=== PATIENT | male | born 1970 | race Caucasian/White ===

== ENCOUNTER 2022-01-29 16:09 | Inpatient (IN) | payer OTHER ==
[2022-01-29 16:42] VITALS: BMI 27.8
[2022-01-29] MEDS ORDERED: LOPERAMIDE HCL 2 MG CAPSULE PO PRN (17:49)
[2022-01-29] MEDS ORDERED: DICYCLOMINE HCL 10 MG CAPSULE PO PRN (17:49)
[2022-01-29] MEDS ORDERED: BENZOCAINE/MENTHOL (CHLORASEPTIC ) LOZENGE MM PRN (17:49)
[2022-01-29] MEDS ORDERED: MAGNESIUM HYDROX 2400MG/30ML ORAL SUSPENSION 30 ML CUP PO PRN (17:49)
[2022-01-29] MEDS ORDERED: IBUPROFEN 400 MG TABLET (FP) PO PRN (17:49)
[2022-01-29] MEDS ORDERED: MAGNESIUM CITRATE 300 ML BOTTLE PO PRN (17:49)
[2022-01-29] MEDS ORDERED: NICOTINE POLACRILEX 2 MG GUM BUC PRN (17:49)
[2022-01-29] MEDS ORDERED: P-EPHED 60MG/TRIPROLIDI 2.5MG TABLET PO PRN (17:49)
[2022-01-29] MEDS ORDERED: guaiFENesin 200 MG/10 ML 10 ML UNIT-DOSE CUPS PO PRN (17:49)
[2022-01-29] MEDS ORDERED: NICOTINE 10 MG CARTRIDGE (INHALER) IH PRN (17:49)
[2022-01-29] MEDS ORDERED: BISMUTH SUBSALICYLATE 524 MG/30 ML PO PRN (17:49)
[2022-01-29] MEDS ORDERED: MAG HYDROX/AL HYDROX/SIMETH 30 ML UNIT-DOSE CUP PO PRN (17:49)
[2022-01-29] MEDS ORDERED: ONDANSETRON *ODT* 4 MG TABLET SL PRN (17:49)
[2022-01-29] MEDS ORDERED: ACETAMINOPHEN 325 MG TABLET (FP) PO PRN ×2 (17:49)
[2022-01-29] MEDS ORDERED: chlordiazePOXIDE HCL 25 MG CAPSULE PO PRN (17:54)
[2022-01-29] MEDS ORDERED: methaDONE HCL 10 MG TABLET (FOR DETOX USE ONLY) PO ONE (18:54)
[2022-01-29] MEDS: METHOCARBAMOL 500 MG TABLET PO PRN (20:10)
[2022-01-29] MEDS: hydrOXYzine PAMOATE 25 MG CAPSULE (FP) PO PRN ×2 (20:11→22:09)
[2022-01-29] MEDS: MELATONIN 5 MG TABLETS PO PRN ×2 (20:12→22:09)
[2022-01-29] MEDS: chlordiazePOXIDE HCL 25 MG CAPSULE PO SCH (22:09)
[2022-01-29] MEDS: THIAMINE HCL 100 MG TABLET (FP) PO SCH (22:09)
[2022-01-30] MEDS: chlordiazePOXIDE HCL 25 MG CAPSULE PO SCH ×2 (05:20→10:09)
[2022-01-30] MEDS ORDERED: methaDONE HCL 10 MG TABLET (FOR DETOX USE ONLY) ONE (09:39)
[2022-01-30] MEDS: PRENATAL VITAMINS W/ FOLIC ACID TABLET (FP) PO SCH (10:08)
[2022-01-30] MEDS: METHOCARBAMOL 500 MG TABLET PO PRN (10:11)
[2022-01-30] MEDS: hydrOXYzine PAMOATE 25 MG CAPSULE (FP) PO PRN ×2 (10:11→17:34)
[2022-01-30] MEDS ORDERED: DIVALPROEX NA *ER* EXTEND REL 250 MG TABLET.SA PO SCH (11:15)
[2022-01-30] MEDS: SERTRALINE HCL 50 MG TABLET (FP) PO SCH (11:25)
[2022-01-30] MEDS: ALBUTEROL SO4 HFA INHALER IH PRN ×2 (11:25→18:08)
[2022-01-30] MEDS ORDERED: diazePAM 5 MG TABLET PO PRN (11:33)
[2022-01-30] MEDS: diazePAM 5 MG TABLET PO SCH ×3 (12:07→22:25)
[2022-01-30] MEDS: busPIRone HCL 5 MG TABLET PO SCH ×2 (13:28→22:24)
[2022-01-30] MEDS: HALOPERIDOL DECANOATE 100 MG/ML IM ONE ×2 (13:32→14:58)
[2022-01-30] MEDS: DIVALPROEX SODIUM 500 MG TABLET E.C. PO SCH ×2 (14:32→22:24)
[2022-01-30] MEDS ORDERED: SUVOREXANT 10 MG TABLET PO PRN (22:00)
[2022-01-30] MEDS: QUEtiapine FUMARATE 100 MG TABLET (FP) PO SCH (22:24)
[2022-01-30] MEDS: DIVALPROEX SODIUM 250 MG TABLET E.C. PO SCH (22:24)
[2022-01-30] MEDS: THIAMINE HCL 100 MG TABLET (FP) PO SCH (22:24)
[2022-01-30] MEDS: OLANZapine 10 MG TABLET PO SCH (22:24)
[2022-01-31] MEDS ORDERED: chlordiazePOXIDE HCL 25 MG CAPSULE PO SCH (05:00)
[2022-01-31] MEDS: diazePAM 5 MG TABLET PO SCH ×5 (06:04→18:37)
[2022-01-31] MEDS: busPIRone HCL 5 MG TABLET PO SCH ×3 (06:04→22:12)
[2022-01-31] MEDS ORDERED: methaDONE HCL 10 MG TABLET (FOR DETOX USE ONLY) PO ONE (10:00)
[2022-01-31] MEDS: SERTRALINE HCL 50 MG TABLET (FP) PO SCH (10:27)
[2022-01-31] MEDS: DIVALPROEX SODIUM 250 MG TABLET E.C. PO SCH (10:27)
[2022-01-31] MEDS: DIVALPROEX SODIUM 500 MG TABLET E.C. PO SCH (10:27)
[2022-01-31] MEDS: PRENATAL VITAMINS W/ FOLIC ACID TABLET (FP) PO SCH (10:27)
[2022-01-31 12:33] LABS: HEMATOCRIT 36.5 % (35.4-49); HEMOGLOBIN 12.5 GM/dL (11.7-16.9); MCH 32.1 pg (25.7-33.7); MCHC 34.3 g/dl (32.0-35.9); MEAN CELL VOLUME 93.6 fl (80-96); MEAN PLT VOLUME 7.7 fl (7.5-11.1); PLATELET COUNT 193 10^3/uL (134-434); RBC 3.89 M/mm3 (4.00-5.60); RDW 14.4 % (11.9-15.9)
[2022-01-31 13:20] LABS: CALCIUM 9.2 mg/dL (8.5-10.1)
[2022-01-31 13:21] LABS: CREATININE 0.8 mg/dL (0.55-1.3)
[2022-01-31 13:22] LABS: BILIRUBIN,TOTAL 0.4 mg/dL (0.2-1); TOT PROT 7.3 g/dl (6.4-8.2)
[2022-01-31 13:23] LABS: ALBUMIN 3.8 g/dl (3.4-5.0); BLOOD UREA NITROGEN 14.2 mg/dL (7-18)
[2022-01-31 17:52] VITALS: BP 133/72; PULSE 109; TEMP 98.9
[2022-01-31] MEDS: hydrOXYzine PAMOATE 25 MG CAPSULE (FP) PO PRN (18:23)
[2022-01-31] MEDS ORDERED: NALOXONE HCL 0.4 MG/ML VIAL ONE (18:39)
[2022-02-01] MEDS ORDERED: chlordiazePOXIDE HCL 10 MG CAPSULE PO PRN
[2022-02-01] MEDS: DIVALPROEX SODIUM 500 MG TABLET E.C. PO SCH (00:14)
[2022-02-01] MEDS: DIVALPROEX SODIUM 250 MG TABLET E.C. PO SCH (00:14)
[2022-02-01] MEDS: QUEtiapine FUMARATE 100 MG TABLET (FP) PO SCH (00:14)
[2022-02-01] MEDS: THIAMINE HCL 100 MG TABLET (FP) PO SCH (01:23)
[2022-02-01] MEDS: OLANZapine 10 MG TABLET PO SCH (01:23)
[2022-02-01] MEDS: diazePAM 5 MG TABLET PO SCH (01:23)
[2022-02-01] MEDS ORDERED: chlordiazePOXIDE HCL 10 MG CAPSULE PO SCH (05:00)
[2022-02-01] MEDS ORDERED: diazePAM 5 MG TABLET PO SCH (06:00)
[2022-02-01 12:35] LABS: HIV INTERPRETATION NEGATIVE (NEGATIVE)
[2022-02-02 00:06] LABS: SARS-CoV-2 NAA Not Detected (Not Detected)
[2022-02-02] MEDS ORDERED: chlordiazePOXIDE HCL 10 MG CAPSULE PO SCH (05:00)
[2022-02-02] MEDS ORDERED: diazePAM 5 MG TABLET PO SCH (06:00)
[2022-02-02] MEDS ORDERED: methaDONE HCL 10 MG TABLET (FOR DETOX USE ONLY) PO ONE (10:00)
[2022-02-03] MEDS ORDERED: chlordiazePOXIDE HCL 10 MG CAPSULE PO ONE (05:00)
== END 2022-02-01 03:46 | disposition short-term general hospital (02) | DRG 897 ==
LOC: EDSEX → YASAS 16:09 → Y6N 19:04
PROVIDERS: ADMIT Allergy & Immunology; ATTEND Allergy & Immunology
PROC: HZ2ZZZZ Detoxification Services for Substance Abuse Treatment (ICD-10-PCS; principal; 2022-01-30)
DX: F11.23 Opioid dependence with withdrawal (principal); F14.20 Cocaine dependence, uncomplicated; F19.282 Other psychoactive substance dependence with psychoactive substance-induced sleep disorder; F19.24 Other psychoactive substance dependence with psychoactive substance-induced mood disorder; F10.230 Alcohol dependence with withdrawal, uncomplicated; F12.10 Cannabis abuse, uncomplicated; F17.210 Nicotine dependence, cigarettes, uncomplicated; I10 Essential (primary) hypertension; J44.9 Chronic obstructive pulmonary disease, unspecified; E11.9 Type 2 diabetes mellitus without complications; Z62.810 Personal history of physical and sexual abuse in childhood; Z59.00 Homelessness unspecified
CPT/HCPCS: 36415; 80053; 80164; 85027; 86780; 87389; 87811; 93005; 93010; C9803-CS; U0003; U0005

== ENCOUNTER 2022-01-31 19:30 | Inpatient (IN) | payer OTHER ==
[2022-01-31 19:42] VITALS: BMI 27.8
[2022-01-31] MEDS ORDERED: NALOXONE HCL 0.4 MG/ML VIAL IVPUSH ONE (19:47)
[2022-01-31] MEDS ORDERED: MAG HYDROX/AL HYDROX/SIMETH 30 ML UNIT-DOSE CUP PO ONE (19:51)
[2022-01-31] MEDS ORDERED: FAMOTIDINE 20 MG/50 ML IVPB 20 MG/50 ML MG IVPB ONE (19:51)
[2022-01-31] MEDS ORDERED: ONDANSETRON 4 MG/2 ML VIAL IVPUSH ONE (19:51)
[2022-01-31] MEDS ORDERED: LACTATED RINGERS SOLUTION 1000 ML INFUS.BAG IV ONE (19:51)
[2022-01-31 21:28] LABS: VENOUS BASE EXCESS 5.7 mmol/L (-2-2); VENOUS O2 SATURATION 98.6 % (70-80); VENOUS PCO2 63.4 mmHg (38-52); VENOUS PH 7.34 (7.310-7.410)
[2022-01-31] MEDS ORDERED: ONDANSETRON 4 MG/2 ML VIAL ONE (21:28)
[2022-01-31] MEDS ORDERED: MAG HYDROX/AL HYDROX/SIMETH 30 ML UNIT-DOSE CUP ONE (21:28)
[2022-01-31] MEDS ORDERED: FAMOTIDINE 10 MG/ML VIAL IVPB ONE (21:29)
[2022-01-31 21:33] LABS: BASO % 0.3 % (0-2.0); EOS % 0.1 % (0-4.5); HEMATOCRIT 35.8 % (35.4-49); HEMOGLOBIN 12.3 GM/dL (11.7-16.9); MCHC 34.2 g/dl (32.0-35.9); MEAN CELL VOLUME 93.5 fl (80-96); MEAN PLT VOLUME 7.6 fl (7.5-11.1); NEUT % 77.6 % (42.8-82.8); PLATELET COUNT 183 10^3/uL (134-434); RBC 3.83 M/mm3 (4.00-5.60); RDW 14.3 % (11.9-15.9); WHITE BLOOD COUNT 9.5 K/mm3 (4.0-10.0)
[2022-01-31 21:40] LABS: INR 0.97 (0.83-1.09); PROTHROMBIN TIME (PATIENT) 11.1 SEC (9.7-13.0)
[2022-01-31 21:42] LABS: ACTIVATED PTT 31.3 SECONDS (25.2-36.5)
[2022-01-31 21:47] LABS: ALBUMIN 3.4 g/dl (3.4-5.0); BLOOD UREA NITROGEN 11.6 mg/dL (7-18)
[2022-01-31 21:50] LABS: CREATININE 0.8 mg/dL (0.55-1.3)
[2022-01-31 21:52] LABS: BILIRUBIN,TOTAL 0.4 mg/dL (0.2-1); TOT PROT 7.5 g/dl (6.4-8.2)
[2022-01-31] MEDS ORDERED: CEFTRIAXONE 1 GM in DEXTROSE 5%-WATER - 100 ML IVPB ONE (22:42)
[2022-01-31] MEDS ORDERED: AZITHROMYCIN IVPB 500 MG in DEXTROSE 5%-WATER - 250 ML IVPB ONE (22:44)
[2022-02-01] MEDS ORDERED: CEFTRIAXONE 1 GM/50 ML BAG ONE (00:59)
[2022-02-01 01:17] LABS: URINE BARBITURATES NEGATIVE (NEGATIVE)
[2022-02-01 01:18] LABS: PHENCYCLIDINE,URINE NEGATIVE (NEGATIVE)
[2022-02-01] MEDS ORDERED: AZITHROMYCIN IVPB 500 MG/250 ML BAG IVPB ONE (01:29)
[2022-02-01 01:42] LABS: COCAINE, UR POSITIVE (NEGATIVE); METHADONE, UR POSITIVE (NEGATIVE); OPIATES, URI NEGATIVE (NEGATIVE); URINE AMPHETAMINES NEGATIVE (NEGATIVE); URINE BENZODIAZEPINES POSITIVE (NEGATIVE)
[2022-02-01] MEDS ORDERED: SODIUM CHLORIDE 500 ML IV STA (03:06)
[2022-02-01] MEDS ORDERED: cloNIDine HCL 0.1 MG TABLET PO PRN (03:15)
[2022-02-01] MEDS ORDERED: diazePAM 5 MG TABLET PO PRN (03:15)
[2022-02-01] MEDS ORDERED: diazePAM 5 MG TABLET PO SCH (06:00)
[2022-02-01] MEDS ORDERED: busPIRone HCL 5 MG TABLET ONE (06:00)
[2022-02-01] MEDS: busPIRone HCL 5 MG TABLET PO SCH ×3 (06:57→22:49)
[2022-02-01] MEDS ORDERED: ALBUTEROL SO4 HFA INHALER IH ONE (08:27)
[2022-02-01] MEDS: ALBUTEROL SO4 HFA INHALER IH PRN (08:52)
[2022-02-01] MEDS ORDERED: AMPICILLIN NA/SULBACTAM NA 1.5 GM in SODIUM CHLORIDE 100 ML IVPB SCH (09:00)
[2022-02-01] MEDS ORDERED: methaDONE HCL 10 MG TABLET ONE (09:16)
[2022-02-01] MEDS ORDERED: SERTRALINE HCL 50 MG TABLET (FP) ONE (09:16)
[2022-02-01] MEDS ORDERED: ENOXAPARIN NA (PORCINE) 40 MG/0.4 ML DISP.SYRIN SQ ONE (09:17)
[2022-02-01] MEDS: ENOXAPARIN NA (PORCINE) 40 MG/0.4 ML DISP.SYRIN SQ SCH (09:37)
[2022-02-01] MEDS: SERTRALINE HCL 50 MG TABLET (FP) PO SCH (09:37)
[2022-02-01] MEDS: NICOTINE 14 MG/24 HOURS TOPICAL PATCH TD SCH (09:37)
[2022-02-01] MEDS ORDERED: DIVALPROEX NA *ER* EXTEND REL 250 MG TABLET.SA PO SCH (10:00)
[2022-02-01] MEDS ORDERED: PIPERACILLIN/TAZOB 3.375 GM 3.375 GM in DEXTROSE 5%-WATER - 50 ML IVPB SCH ×2 (11:30→18:00)
[2022-02-01] MEDS ORDERED: PIPERACILLIN/TAZOB 3.375 GM 3.375 GM/50 ML BAG IVPB ONE (11:32)
[2022-02-01] MEDS ORDERED: DEXTROSE 5%-WATER - 50 ML IVPB ONE (17:26)
[2022-02-01] MEDS ORDERED: PIPERACILLIN/TAZOBACTAM 3.375 GM VIAL IVPB ONE (17:26)
[2022-02-01] MEDS: PIPERACILLIN/TAZOB 3.375 GM 3.375 GM in DEXTROSE 5%-WATER - 50 ML IVPB SCH (17:33)
[2022-02-01] MEDS ORDERED: QUEtiapine FUMARATE 50 MG TABLET ONE (21:23)
[2022-02-01] MEDS: diazePAM 5 MG TABLET PO SCH (22:49)
[2022-02-01] MEDS: OLANZapine 10 MG TABLET PO SCH (22:51)
[2022-02-01] MEDS: DIVALPROEX NA *ER* EXTEND REL 250 MG TABLET.SA PO SCH (22:51)
[2022-02-01] MEDS: QUEtiapine FUMARATE 100 MG TABLET (FP) PO SCH (22:51)
[2022-02-02] MEDS ORDERED: PIPERACILLIN/TAZOBACTAM 3.375 GM VIAL IVPB ONE ×3 (01:51→16:49)
[2022-02-02] MEDS ORDERED: DEXTROSE 5%-WATER - 50 ML IVPB ONE ×3 (01:52→16:49)
[2022-02-02] MEDS: PIPERACILLIN/TAZOB 3.375 GM 3.375 GM in DEXTROSE 5%-WATER - 50 ML IVPB SCH ×3 (03:00→17:49)
[2022-02-02] MEDS ORDERED: diazePAM 5 MG TABLET PO ONE (06:00)
[2022-02-02] MEDS ORDERED: diazePAM 5 MG TABLET PO SCH (06:00)
[2022-02-02] MEDS: busPIRone HCL 5 MG TABLET PO SCH ×3 (06:10→21:36)
[2022-02-02 07:15] LABS: BASO % 0.2 % (0-2.0); HEMATOCRIT 31.7 % (35.4-49); LYMPH % 30.6 % (8-40); MCH 32.2 pg (25.7-33.7); MCHC 34.6 g/dl (32.0-35.9); MEAN CELL VOLUME 92.9 fl (80-96); MEAN PLT VOLUME 7.6 fl (7.5-11.1); MONO % 10.6 % (3.8-10.2); NEUT % 57.6 % (42.8-82.8); PLATELET COUNT 192 10^3/uL (134-434); RBC 3.41 M/mm3 (4.00-5.60); WHITE BLOOD COUNT 4.9 K/mm3 (4.0-10.0)
[2022-02-02 07:40] LABS: CALCIUM 8.5 mg/dL (8.5-10.1)
[2022-02-02 07:41] LABS: ALBUMIN 3.1 g/dl (3.4-5.0); MAGNESIUM 2.5 mg/dL (1.8-2.4)
[2022-02-02 07:44] LABS: CREATININE 0.7 mg/dL (0.55-1.3); PHOSPHOROUS 3.9 mg/dL (2.5-4.9)
[2022-02-02 07:45] LABS: BILIRUBIN,TOTAL 0.3 mg/dL (0.2-1)
[2022-02-02 07:46] LABS: TOT PROT 6.1 g/dl (6.4-8.2)
[2022-02-02] MEDS: DIVALPROEX NA *ER* EXTEND REL 250 MG TABLET.SA PO SCH ×2 (09:37→21:37)
[2022-02-02] MEDS: diazePAM 5 MG TABLET PO SCH (09:38)
[2022-02-02] MEDS: ENOXAPARIN NA (PORCINE) 40 MG/0.4 ML DISP.SYRIN SQ SCH (09:38)
[2022-02-02] MEDS: SERTRALINE HCL 50 MG TABLET (FP) PO SCH (09:38)
[2022-02-02] MEDS: NICOTINE 14 MG/24 HOURS TOPICAL PATCH TD SCH (09:38)
[2022-02-02] MEDS: ALBUTEROL SO4 HFA INHALER IH PRN ×2 (09:44→16:55)
[2022-02-02] MEDS ORDERED: methaDONE HCL 10 MG TABLET (FOR DETOX USE ONLY) PO ONE (10:00)
[2022-02-02] MEDS ORDERED: methaDONE HCL 10 MG TABLET PO ONE (10:00)
[2022-02-02 20:16] LABS: PH,URINE 7.5 (5.0-8.0); URINE APPEARANCE CLEAR; URINE BILIRUBIN NEGATIVE (NEGATIVE); URINE COLOR YELLOW; URINE GLUCOSE (UA) NEGATIVE (NEGATIVE); URINE KETONE NEGATIVE (NEGATIVE); URINE LEUK ESTERASE NEGATIVE (NEGATIVE); URINE NITRITE NEGATIVE (NEGATIVE); URINE PROTEIN NEGATIVE (NEGATIVE); URINE UROBILINOGEN 0.2 mg/dL (0.2-1.0)
[2022-02-02] MEDS ORDERED: QUEtiapine FUMARATE 50 MG TABLET ONE (21:23)
[2022-02-02] MEDS: OLANZapine 10 MG TABLET PO SCH (21:37)
[2022-02-02] MEDS: QUEtiapine FUMARATE 100 MG TABLET (FP) PO SCH (21:38)
[2022-02-03] MEDS ORDERED: PIPERACILLIN/TAZOBACTAM 3.375 GM VIAL IVPB ONE ×3 (01:07→15:46)
[2022-02-03] MEDS ORDERED: DEXTROSE 5%-WATER - 50 ML IVPB ONE ×3 (01:08→15:46)
[2022-02-03] MEDS: PIPERACILLIN/TAZOB 3.375 GM 3.375 GM in DEXTROSE 5%-WATER - 50 ML IVPB SCH ×3 (01:17→16:59)
[2022-02-03] MEDS ORDERED: diazePAM 5 MG TABLET PO ONE (06:00)
[2022-02-03] MEDS: busPIRone HCL 5 MG TABLET PO SCH ×3 (06:33→23:09)
[2022-02-03] MEDS: ENOXAPARIN NA (PORCINE) 40 MG/0.4 ML DISP.SYRIN SQ SCH (09:04)
[2022-02-03] MEDS: DIVALPROEX NA *ER* EXTEND REL 250 MG TABLET.SA PO SCH ×2 (09:04→23:09)
[2022-02-03] MEDS: NICOTINE 14 MG/24 HOURS TOPICAL PATCH TD SCH (09:05)
[2022-02-03] MEDS: SERTRALINE HCL 50 MG TABLET (FP) PO SCH (09:05)
[2022-02-03 09:37] LABS: BASO % 0.3 % (0-2.0); EOS % 1.2 % (0-4.5); HEMATOCRIT 34.4 % (35.4-49); HEMOGLOBIN 11.7 GM/dL (11.7-16.9); LYMPH % 32.7 % (8-40); MCH 31.6 pg (25.7-33.7); MEAN CELL VOLUME 92.9 fl (80-96); MEAN PLT VOLUME 7.6 fl (7.5-11.1); MONO % 8.6 % (3.8-10.2); NEUT % 57.2 % (42.8-82.8); PLATELET COUNT 251 10^3/uL (134-434); RDW 13.9 % (11.9-15.9); WHITE BLOOD COUNT 5.6 K/mm3 (4.0-10.0)
[2022-02-03 10:03] LABS: ALBUMIN 3.3 g/dl (3.4-5.0); BLOOD UREA NITROGEN 11.9 mg/dL (7-18); MAGNESIUM 2.3 mg/dL (1.8-2.4)
[2022-02-03 10:06] LABS: CREATININE 0.7 mg/dL (0.55-1.3); PHOSPHOROUS 4.2 mg/dL (2.5-4.9)
[2022-02-03 10:08] LABS: BILIRUBIN,TOTAL 0.3 mg/dL (0.2-1)
[2022-02-03 10:10] LABS: TOT PROT 6.7 g/dl (6.4-8.2)
[2022-02-03] MEDS: ALBUTEROL SO4 HFA INHALER IH PRN ×2 (11:04→18:45)
[2022-02-03 15:57] LABS: URINE APPEARANCE CLEAR; URINE BILIRUBIN NEGATIVE (NEGATIVE); URINE COLOR YELLOW; URINE GLUCOSE (UA) NEGATIVE (NEGATIVE); URINE KETONE NEGATIVE (NEGATIVE); URINE LEUK ESTERASE NEGATIVE (NEGATIVE); URINE NITRITE NEGATIVE (NEGATIVE); URINE PROTEIN NEGATIVE (NEGATIVE); URINE UROBILINOGEN 0.2 mg/dL (0.2-1.0)
[2022-02-03 16:50] LABS: URINE APPEARANCE CLEAR; URINE BILIRUBIN NEGATIVE (NEGATIVE); URINE COLOR YELLOW; URINE GLUCOSE (UA) NEGATIVE (NEGATIVE); URINE KETONE NEGATIVE (NEGATIVE); URINE LEUK ESTERASE NEGATIVE (NEGATIVE); URINE NITRITE NEGATIVE (NEGATIVE); URINE PROTEIN NEGATIVE (NEGATIVE); URINE UROBILINOGEN 0.2 mg/dL (0.2-1.0)
[2022-02-03] MEDS ORDERED: QUEtiapine FUMARATE 50 MG TABLET ONE (22:25)
[2022-02-03] MEDS: AMOX TR/POT CLAV 875MG/125MG TABLETS (FP) PO SCH (23:06)
[2022-02-03] MEDS: OLANZapine 10 MG TABLET PO SCH (23:06)
[2022-02-03] MEDS: QUEtiapine FUMARATE 100 MG TABLET (FP) PO SCH (23:09)
[2022-02-04] MEDS: busPIRone HCL 5 MG TABLET PO SCH ×3 (06:04→21:07)
[2022-02-04 08:23] LABS: BASO % 0.4 % (0-2.0); EOS % 1.8 % (0-4.5); HEMATOCRIT 36.9 % (35.4-49); HEMOGLOBIN 12.7 GM/dL (11.7-16.9); MCH 31.9 pg (25.7-33.7); MCHC 34.3 g/dl (32.0-35.9); MEAN CELL VOLUME 92.8 fl (80-96); MONO % 9.2 % (3.8-10.2); NEUT % 56.6 % (42.8-82.8); PLATELET COUNT 253 10^3/uL (134-434); RBC 3.98 M/mm3 (4.00-5.60); RDW 14.1 % (11.9-15.9); WHITE BLOOD COUNT 5.2 K/mm3 (4.0-10.0)
[2022-02-04 08:44] LABS: CALCIUM 9.1 mg/dL (8.5-10.1)
[2022-02-04 08:45] LABS: ALBUMIN 3.2 g/dl (3.4-5.0); BLOOD UREA NITROGEN 14.4 mg/dL (7-18); MAGNESIUM 2.5 mg/dL (1.8-2.4)
[2022-02-04 08:48] LABS: CREATININE 0.8 mg/dL (0.55-1.3); PHOSPHOROUS 4.4 mg/dL (2.5-4.9)
[2022-02-04] MEDS: ALBUTEROL SO4 HFA INHALER IH PRN (08:48)
[2022-02-04 08:49] LABS: BILIRUBIN,TOTAL 0.3 mg/dL (0.2-1); TOT PROT 6.7 g/dl (6.4-8.2)
[2022-02-04] MEDS: POLYETHYLENE GLYCOL (HEALTHYLAX) 3350 17 GM PACKET PO SCH (10:23)
[2022-02-04] MEDS: DIVALPROEX NA *ER* EXTEND REL 250 MG TABLET.SA PO SCH ×2 (10:24→21:08)
[2022-02-04] MEDS: AMOX TR/POT CLAV 875MG/125MG TABLETS (FP) PO SCH ×2 (10:24→16:41)
[2022-02-04] MEDS: SERTRALINE HCL 50 MG TABLET (FP) PO SCH (10:25)
[2022-02-04] MEDS: ENOXAPARIN NA (PORCINE) 40 MG/0.4 ML DISP.SYRIN SQ SCH (10:25)
[2022-02-04] MEDS: NICOTINE 14 MG/24 HOURS TOPICAL PATCH TD SCH (10:27)
[2022-02-04] MEDS ORDERED: TAMSULOSIN HCL 0.4 MG CAP PO ONE (15:39)
[2022-02-04] MEDS ORDERED: ACETAMINOPHEN 325 MG TABLET (FP) PO PRN (20:15)
[2022-02-04] MEDS ORDERED: QUEtiapine FUMARATE 50 MG TABLET ONE (21:04)
[2022-02-04] MEDS: MELATONIN 5 MG TABLETS PO PRN (21:08)
[2022-02-04] MEDS: OLANZapine 10 MG TABLET PO SCH (21:09)
[2022-02-04] MEDS: QUEtiapine FUMARATE 100 MG TABLET (FP) PO SCH (21:10)
[2022-02-05] MEDS: busPIRone HCL 5 MG TABLET PO SCH ×3 (07:00→22:46)
[2022-02-05] MEDS: AMOX TR/POT CLAV 875MG/125MG TABLETS (FP) PO SCH ×2 (08:25→17:42)
[2022-02-05 08:33] LABS: BASO % 0.4 % (0-2.0); EOS % 1.7 % (0-4.5); HEMATOCRIT 36.1 % (35.4-49); HEMOGLOBIN 12.3 GM/dL (11.7-16.9); MCH 31.7 pg (25.7-33.7); MCHC 34.2 g/dl (32.0-35.9); MEAN CELL VOLUME 92.9 fl (80-96); MEAN PLT VOLUME 7.3 fl (7.5-11.1); MONO % 11.2 % (3.8-10.2); NEUT % 41.7 % (42.8-82.8); PLATELET COUNT 262 10^3/uL (134-434); RBC 3.89 M/mm3 (4.00-5.60); RDW 13.8 % (11.9-15.9)
[2022-02-05 08:57] LABS: CALCIUM 8.7 mg/dL (8.5-10.1)
[2022-02-05 08:58] LABS: ALBUMIN 2.8 g/dl (3.4-5.0); BLOOD UREA NITROGEN 14.7 mg/dL (7-18); MAGNESIUM 2.1 mg/dL (1.8-2.4)
[2022-02-05 09:01] LABS: PHOSPHOROUS 4.4 mg/dL (2.5-4.9)
[2022-02-05 09:02] LABS: BILIRUBIN,TOTAL 0.2 mg/dL (0.2-1); TOT PROT 6.1 g/dl (6.4-8.2)
[2022-02-05 09:04] LABS: CREATININE 0.9 mg/dL (0.55-1.3)
[2022-02-05] MEDS: ENOXAPARIN NA (PORCINE) 40 MG/0.4 ML DISP.SYRIN SQ SCH (09:45)
[2022-02-05] MEDS: POLYETHYLENE GLYCOL (HEALTHYLAX) 3350 17 GM PACKET PO SCH (09:45)
[2022-02-05] MEDS: TAMSULOSIN HCL 0.4 MG CAP PO SCH (09:46)
[2022-02-05] MEDS: DIVALPROEX NA *ER* EXTEND REL 250 MG TABLET.SA PO SCH ×2 (09:46→22:47)
[2022-02-05] MEDS: SERTRALINE HCL 50 MG TABLET (FP) PO SCH (09:46)
[2022-02-05] MEDS: NICOTINE 14 MG/24 HOURS TOPICAL PATCH TD SCH (09:46)
[2022-02-05] MEDS: ALBUTEROL SO4 HFA INHALER IH PRN (13:22)
[2022-02-05] MEDS ORDERED: diphenhydrAMINE HCL 25 MG CAPSULE (FP) PO ONE (16:14)
[2022-02-05] MEDS ORDERED: QUEtiapine FUMARATE 50 MG TABLET ONE (22:13)
[2022-02-05] MEDS: MELATONIN 5 MG TABLETS PO PRN (22:45)
[2022-02-05] MEDS: OLANZapine 10 MG TABLET PO SCH (22:48)
[2022-02-05] MEDS: QUEtiapine FUMARATE 100 MG TABLET (FP) PO SCH (22:48)
[2022-02-06] MEDS: busPIRone HCL 5 MG TABLET PO SCH ×3 (05:32→22:24)
[2022-02-06 07:53] LABS: BASO % 0.4 % (0-2.0); EOS % 1.2 % (0-4.5); HEMATOCRIT 36.5 % (35.4-49); HEMOGLOBIN 12.6 GM/dL (11.7-16.9); LYMPH % 41.3 % (8-40); MCH 31.8 pg (25.7-33.7); MCHC 34.5 g/dl (32.0-35.9); MEAN CELL VOLUME 92.1 fl (80-96); MEAN PLT VOLUME 6.8 fl (7.5-11.1); MONO % 11.5 % (3.8-10.2); NEUT % 45.6 % (42.8-82.8); PLATELET COUNT 262 10^3/uL (134-434); RBC 3.96 M/mm3 (4.00-5.60); WHITE BLOOD COUNT 4.5 K/mm3 (4.0-10.0)
[2022-02-06 08:14] LABS: CALCIUM 8.8 mg/dL (8.5-10.1); MAGNESIUM 2.1 mg/dL (1.8-2.4)
[2022-02-06 08:15] LABS: BLOOD UREA NITROGEN 14.1 mg/dL (7-18)
[2022-02-06 08:17] LABS: CREATININE 0.8 mg/dL (0.55-1.3); PHOSPHOROUS 4.4 mg/dL (2.5-4.9)
[2022-02-06 08:19] LABS: BILIRUBIN,TOTAL 0.3 mg/dL (0.2-1); TOT PROT 6.3 g/dl (6.4-8.2)
[2022-02-06] MEDS: POLYETHYLENE GLYCOL (HEALTHYLAX) 3350 17 GM PACKET PO SCH (09:43)
[2022-02-06] MEDS: AMOX TR/POT CLAV 875MG/125MG TABLETS (FP) PO SCH ×2 (09:43→16:42)
[2022-02-06] MEDS: NICOTINE 14 MG/24 HOURS TOPICAL PATCH TD SCH (09:43)
[2022-02-06] MEDS: ENOXAPARIN NA (PORCINE) 40 MG/0.4 ML DISP.SYRIN SQ SCH (09:44)
[2022-02-06] MEDS: SERTRALINE HCL 50 MG TABLET (FP) PO SCH (09:44)
[2022-02-06] MEDS: TAMSULOSIN HCL 0.4 MG CAP PO SCH (09:44)
[2022-02-06] MEDS: DIVALPROEX NA *ER* EXTEND REL 250 MG TABLET.SA PO SCH ×2 (09:48→22:24)
[2022-02-06] MEDS ORDERED: QUEtiapine FUMARATE 50 MG TABLET ONE (22:16)
[2022-02-06] MEDS: OLANZapine 10 MG TABLET PO SCH (22:24)
[2022-02-06] MEDS: QUEtiapine FUMARATE 100 MG TABLET (FP) PO SCH (22:25)
[2022-02-07] MEDS: busPIRone HCL 5 MG TABLET PO SCH ×3 (06:17→23:16)
[2022-02-07] MEDS: DIVALPROEX NA *ER* EXTEND REL 250 MG TABLET.SA PO SCH ×2 (09:19→23:16)
[2022-02-07] MEDS: NICOTINE 14 MG/24 HOURS TOPICAL PATCH TD SCH (09:19)
[2022-02-07] MEDS: SERTRALINE HCL 50 MG TABLET (FP) PO SCH (09:19)
[2022-02-07] MEDS: POLYETHYLENE GLYCOL (HEALTHYLAX) 3350 17 GM PACKET PO SCH (09:19)
[2022-02-07] MEDS: TAMSULOSIN HCL 0.4 MG CAP PO SCH (09:19)
[2022-02-07] MEDS: ENOXAPARIN NA (PORCINE) 40 MG/0.4 ML DISP.SYRIN SQ SCH (09:20)
[2022-02-07] MEDS ORDERED: QUEtiapine FUMARATE 50 MG TABLET ONE (21:41)
[2022-02-07] MEDS: QUEtiapine FUMARATE 100 MG TABLET (FP) PO SCH (23:17)
[2022-02-07] MEDS: OLANZapine 10 MG TABLET PO SCH (23:17)
[2022-02-08] MEDS: busPIRone HCL 5 MG TABLET PO SCH ×3 (07:11→13:36)
[2022-02-08] MEDS: ALBUTEROL SO4 HFA INHALER IH PRN (09:05)
[2022-02-08] MEDS: NICOTINE 14 MG/24 HOURS TOPICAL PATCH TD SCH (09:06)
[2022-02-08] MEDS: DIVALPROEX NA *ER* EXTEND REL 250 MG TABLET.SA PO SCH (09:07)
[2022-02-08] MEDS: POLYETHYLENE GLYCOL (HEALTHYLAX) 3350 17 GM PACKET PO SCH (09:07)
[2022-02-08] MEDS: TAMSULOSIN HCL 0.4 MG CAP PO SCH (09:07)
[2022-02-08] MEDS: SERTRALINE HCL 50 MG TABLET (FP) PO SCH (09:07)
[2022-02-08 13:35] VITALS: BP 124/71; PULSE 84; TEMP 98.3
== END 2022-02-08 17:00 | disposition home or self-care (01) | DRG 917 ==
LOC: JER 19:30 → JERBED 02-01 00:20 → J7W 02-01 12:01
PROVIDERS: ADMIT Hospitalist; ATTEND Internal Medicine
DX: T40.2X1A Poisoning by other opioids, accidental (unintentional), initial encounter (principal); J96.01 Acute respiratory failure with hypoxia; J69.0 Pneumonitis due to inhalation of food and vomit; C85.90 Non-Hodgkin lymphoma, unspecified, unspecified site; J98.11 Atelectasis; F10.239 Alcohol dependence with withdrawal, unspecified; C49.9 Malignant neoplasm of connective and soft tissue, unspecified; N13.2 Hydronephrosis with renal and ureteral calculous obstruction; F14.10 Cocaine abuse, uncomplicated; J45.909 Unspecified asthma, uncomplicated; F20.9 Schizophrenia, unspecified; G40.909 Epilepsy, unspecified, not intractable, without status epilepticus; B19.20 Unspecified viral hepatitis C without hepatic coma; F19.24 Other psychoactive substance dependence with psychoactive substance-induced mood disorder; E11.9 Type 2 diabetes mellitus without complications; I10 Essential (primary) hypertension; J44.9 Chronic obstructive pulmonary disease, unspecified; F32.A Depression, unspecified; Y92.89 Other specified places as the place of occurrence of the external cause
CPT/HCPCS: 36415; 70450-TC; 71045-TC-FY; 74177-TC; 76775-TC; 78708-TC; 80053; 80307; 81003; 82803; 82962; 83735; 84100; 84484; 85025; 85610; 85730; 87070; 87077; 87086; 87205; 87899; 93005; 93010; 94761; 99291; A9562; C9803-CS; J0735; Q9967; U0003; U0005